=== PATIENT | female | born 1990 | race African-American/Black ===

== ENCOUNTER 2022-05-05 17:40 | Observation (INO) | payer SELFPAY ==
[~2022-05-05] VITALS: Ht 167.6 cm; Wt 55.0 kg
[2022-05-05] MEDS ORDERED: LACTATED RINGERS 1,000 ML IV SCH (19:00)
[2022-05-05 19:16] LABS: CLARITY URINE CLEAR (CLEAR); COLOR URINE YELLOW (YELLOW); KETONES URINE NEGATIVE (NEGATIVE); LEUKOCYTE ESTERASE URINE TRACE (NEGATIVE); NITRITE URINE NEGATIVE (NEGATIVE); OCCULT BLOOD URINE NEGATIVE (NEGATIVE); PH URINE 6.5 (4.5-8.0); PROTEIN URINE NEGATIVE (NEGATIVE); SPECIFIC GRAVITY URINE 1.003 (1.005-1.030); UROBILINOGEN URINE 0.2 E.U./dL (0.2-1.0)
[2022-05-05] MEDS ORDERED: TERBUTALINE SULFATE 1MG/ML VIAL SUBCUT PRN ×2 (19:45)
== END 2022-05-05 22:55 | disposition home or self-care (01) ==
LOC: 8 EST LDRP 17:40
PROVIDERS: ADMIT Obstetrics & Gynecology; ATTEND Obstetrics & Gynecology
DX: O47.03 False labor before 37 completed weeks of gestation, third trimester (principal); O99.283 Endocrine, nutritional and metabolic diseases complicating pregnancy, third trimester; E86.0 Dehydration; O62.9 Abnormality of forces of labor, unspecified; Z3A.33 33 weeks gestation of pregnancy
CPT/HCPCS: 59025; 76805; 76818; 81003; 82731; 96360; 96361; 96372; C1893; G0378; J3105; 59412